=== PATIENT | male | born 1990 | race Caucasian/White ===

== ENCOUNTER 2020-05-12 12:13 | Emergency (ER) | payer OTHER, SELFPAY ==
[2020-05-12 12:25] VITALS: BP 126/62; PULSE 85; RESP 18; TEMP 35.7; O2SAT 100; BMI 23.6
--- NOTE | 2020-05-12 12:25 | DI.RAD.S_ITS ---
PROCEDURE: XR HAND RT MIN 3V INDICATIONS: chain saw accident TECHNIQUE: 3 views of the hand(s) acquired. COMPARISON: None. FINDINGS: Bones: No fractures or dislocations. Carpal bones are normally aligned. No suspicious bony lesions. Soft tissues: No suspicious soft tissue calcifications. No radiopaque foreign body. IMPRESSION: No acute osseous abnormalities. No radiopaque foreign body. Dictated by: Carlos Dye M.D. on 05/12/2020 at 13:37 Approved by: Carlos Dye M.D. on 05/12/2020 at 13:39
--- NOTE | 2020-05-12 13:04 | ED_ITS ---
HPI - Wound/Laceration <CARLOS ALBERTO Brock - Last Filed: 05/12/20 16:00> General Chief Complaint: Wound/Laceration Stated Complaint: wound from chain saw right hand thumb Time Seen by Provider: 05/12/20 12:36 Source: patient Mode of arrival: Family Vehicle Limitations: no limitations History of Present Illness HPI narrative: This is a 30-year-old male, current nicotine vapor, without p ertinent medical history presents to ED with right dominant hand thumb injury from a chainsaw when he was at work cutting down a tree. Patient reports injury happened 1 hour prior coming into ED. he reports tetanus vaccination is updated couple of months ago since he is also working at [employer]. Patient reports numbness on volar aspect of thumb but is able to move his fingers with flexion, extension and laterally with abduction and adduction. Patient denies previous injury to affected hand. Related Data Previous Rx's Medication Instructions Recorded cephalexin 500 mg PO Q6H 7 Days #28 cap 05/12/20 Allergies Allergy/AdvReac Type Severity Reaction Status Date / Time No Known Drug Allergies Allergy Verified 05/12/20 12:32 Review of Systems <CARLOS ALBERTO Brock - Last Filed: 05/12/20 16:00> Review of Systems Narrative: General: Denies fever, chills, fatigue, malaise, sweats. Respiratory: Denies dyspnea, cough, wheezing, hemoptysis, sputum. Cardiovascular: Denies chest pain, palpitations, orthopnea, edema. Gastrointestinal: Denies nausea, vomiting, abdominal pain, diarrhea, constipation, melena. Musculoskeletal: See HPI Skin: See HPI Patient History <CARLOS ALBERTO Brock - Last Filed: 05/12/20 16:00> Medical History No significant past medical history Surgical History No pertinent past surgical history Social History Smoking Status: Current every day smoker Smoking Status: Current every day smoker tobacco type: vaping alcohol intake frequency: 0-2 drinks per day Substance Use Type: does not use Exam <CARLOS ALBERTO Brock - Last Filed: 05/12/20 16:00> Narrative Exam Narrative: General appearance: well developed, well nourished, in no acute distress. Head: normocephalic, atraumatic, no scalp lesions, non-tender. ENT: Hearing grossly intact. Airway patent. Neck/Thyroid: neck supple, full range of motion, no visible masses or meningeal signs. No JVD, non-tender without lymphadenopathy. Skin: 5 linear lacerations mostly on volar and radial aspect of right thumb involving proximal and distal phalanges without active bleeding. Heart: no clubbing, no cyanosis, no edema. S1 and S2 normal. RRR w/o murmurs, clicks, or bruits. Lungs: Breathing even and unlabored. No stridor. No accessory muscles used. Able to speak in full sentences. Chest: normal shape and expansion. Abdomen: non-obese, non-distended. Neurologic: alert and oriented. Cognitive exam, [employer]BER and PNS grossly intact on informal exam. Psych: good eye contact, normal affect. Initial Vital Signs Initial Vital Signs: Vital Signs Temperature 96.3 F L 05/12/20 12:25 Pulse Rate 85 05/12/20 12:25 Respiratory Rate 18 05/12/20 12:25 Blood Pressure 126/62 05/12/20 12:25 Pulse Oximetry 100 05/12/20 12:25 Extrem Right upper extremity: hand Details: abnormal to inspection, normal capillary refill, tendon exam normal, tenderness, vascular exam, normal ROM of fingers and laceration (Five linear irregular jagged lacerations in proximal and distal phalanges of thumb. Decreased sensation to volar aspect of thumb) <Artie Castillo DO - Last Filed: 05/12/20 17:55> Initial Vital Signs Initial Vital Signs: Vital Signs Temperature 96.3 F L 05/12/20 12:25 Pulse Rate 85 05/12/20 12:25 Respiratory Rate 18 05/12/20 12:25 Blood Pressure 126/62 05/12/20 12:25 Pulse Oximetry 100 05/12/20 12:25 Procedures <Dale ParekhCARLOS ALBERTO - Last Filed: 05/12/20 16:00> Laceration Repair Laceration 1: Site: hand (thumb) Side (If applicable): right Size (cm): 5 (additional 3, 2, 1 cm) Description: linear and irregular Depth: simple, single layer Local Anesthetic: lidocaine 2%, with epi and with bicarb Amount of anesthesia used (mL): 6 Pre-repair: wound explored, irrigated extensively, deep structures intact and wound margins revised Skin layer closed with: nylon Size (cm): 4-0 Number of sutures: 14 Technique: simple, interrupted Scores <CARLOS ALBERTO Brock - Last Filed: 05/12/20 16:00> GCS Wolf coma scale eye opening: Spontaneous Wolf coma scale verbal response: Orientated Wolf coma scale motor response: Obey commands [place] coma scale total score: 15 Course <CARLOS ALBERTO Brock - Last Filed: 05/12/20 16:00> Orders Ordered: ED Orders 05/12/20 12:25 XR hand RT min 3V Stat Discontinued Medications Acetaminophen (Acetaminophen 325 Mg Tablet) 650 mg PO NOW ONE Stop: 05/12/20 13:03 Last Admin: 05/12/20 13:30 Dose: 650 mg Documented by: SEAN Hydrocodone Bitart/Acetaminophen (Hydrocodone/Acet 5/325 Tablet) 1 tab PO NOW ONE Stop: 05/12/20 13:03 Last Admin: 05/12/20 13:31 Dose: 1 tab Documented by: SEAN Bacitracin (Bacitracin Oint 0.9 Gm Pckt) 2 applic TOP NOW ONE Stop: 05/12/20 13:03 Last Admin: 05/12/20 13:30 Dose: 2 applic Documented by: SEAN Ibuprofen (Ibuprofen 400 Mg Tablet) 400 mg PO NOW ONE Stop: 05/12/20 13:03 Last Admin: 05/12/20 13:30 Dose: 400 mg Documented by: SEAN Lidocaine/Sodium Bicarbonate (Lido 1%/Sod Bicarb 8.4% (10ml) 10 Ml Syringe) 10 ml INJ NOW ONE Stop: 05/12/20 13:03 Last Admin: 05/12/20 13:31 Dose: 10 ml Documented by: SEAN Vital Signs Vital signs: Vital Signs - 8 hr 05/12/20 12:25 05/12/20 15:46 Temperature 96.3 F L Pulse Rate 85 78 Respiratory Rate 18 18 Blood Pressure 126/62 111/86 Pulse Oximetry 100 98 <Artie Castillo DO - Last Filed: 05/12/20 17:55> Orders Ordered: ED Orders 05/12/20 12:25 XR hand RT min 3V Stat Discontinued Medications Acetaminophen (Acetaminophen 325 Mg Tablet) 650 mg PO NOW ONE Stop: 05/12/20 13:03 Last Admin: 05/12/20 13:30 Dose: 650 mg Documented by: SEAN Hydrocodone Bitart/Acetaminophen (Hydrocodone/Acet 5/325 Tablet) 1 tab PO NOW ONE Stop: 05/12/20 13:03 Last Admin: 05/12/20 13:31 Dose: 1 tab Documented by: SEAN Bacitracin (Bacitracin Oint 0.9 Gm Pckt) 2 applic TOP NOW ONE Stop: 05/12/20 13:03 Last Admin: 05/12/20 13:30 Dose: 2 applic Documented by: SEAN Ibuprofen (Ibuprofen 400 Mg Tablet) 400 mg PO NOW ONE Stop: 05/12/20 13:03 Last Admin: 05/12/20 13:30 Dose: 400 mg Documented by: SEAN Lidocaine/Sodium Bicarbonate (Lido 1%/Sod Bicarb 8.4% (10ml) 10 Ml Syringe) 10 ml INJ NOW ONE Stop: 05/12/20 13:03 Last Admin: 05/12/20 13:31 Dose: 10 ml Documented by: SEAN Vital Signs Vital signs: Vital Signs - 8 hr 05/12/20 12:25 05/12/20 15:46 Temperature 96.3 F L Pulse Rate 85 78 Respiratory Rate 18 18 Blood Pressure 126/62 111/86 Pulse Oximetry 100 98 MDM - Wound/Laceration <CARLOS ALBERTO Brock - Last Filed: 05/12/20 16:00> Differential Diagnosis Differential diagnosis: Likely laceration and other (Open fracture on right thumb) Medical Records Attestation: I reviewed the patient's medical records. Imaging Data XR-Hand RT: Radiologist's Impression: [address] [id number] ReportSigned Patient: Fran Le LMR#: [id number]: 1990Acct:[id number]/Sex: 30 / MDate of Service: 05/12/20Loc: EDAccession Number: [id number] Procedure: XR hand RT min 3V Ordering Provider: Artie Castillo D.O. PROCEDURE: XR HAND RT MIN 3V INDICATIONS: chain saw accident TECHNIQUE: 3 views of the hand(s) acquired. COMPARISON: None. FINDINGS: Bones: No fractures or dislocations. Carpal bones are normally aligned. No suspicious bony lesions. Soft tissues: No suspicious soft tissue calcifications. No radiopaque foreign body. IMPRESSION: No acute osseous abnormalities. No radiopaque foreign body. Dictated by: Carlos Dye M.D. on 05/12/2020 at 13:37 Approved by: Carlos Dye M.D. on 05/12/2020 at 13:39 [facility] Narrative Medical decision making narrative: This is a 30-year-old male who had injured right thumb during at work while cutting trees with a chainsaw. Right dominant hand. Laceration in volar aspect of distal and proximal phalanges. Tetanus updated couple of months ago. Patient is able to flex and extend against resistance on affected finger but has decreased sensation on thumb pad. X-ray shows no acute findings such as fractures. Laceration irregular and 5 linear shapes deep and superficial laceration and had lost subcutaneous tissues and epidermis. Complicated suture repair after deep cleaning with Hibiclens and normal saline. Please see procedure note. Given patient's laceration involving finger/hand near joints and possible contamination with dirt, started patient on antibiotic medication with Keflex q.i.d. dose for 7 days. Patient advised to follow-up in 2 days for wound recheck and suture removal in 10-14 days. Phone number to [facility] provided and [facility] orthopedist if patient experiences weakness and decreased mobility with persistent numbness as needed. Patient verbalized understanding in agreement with the treatment plan. Finger splint provided for suture protection on affected finger. Dr. Castillo consulted for suture repair and he assessed the patient with myself at bedside. Discharge Plan Departure Patient Disposition: Home Clinical Impression: Laceration Instructions: DI for Laceration Repair Activity Restrictions/Additional Instructions: You have been diagnosed with [ and findings ]. What to do: *Take your medications as directed. You can start taking Keflex which is antibiotic medication 4 times for 7 days to prevent infection. The medication prescription has been transmitted to [facility] in [facility]. You can take [id number] Tylenol and or Motrin as needed for discomfort. Tylenol 650- 1000 mg up to 3 times a day as needed for pain. Ibuprofen 400-600 mg up to 3 times a day as needed for pain with food to decrease GI irritations. Use finger splint to protect sutures. Please do not get your wound soaked in the water until suture removal. Keep your dressing intact for next 24 hrs. After then, you could remove your dressing, wash with soap and water. Pat dry with clean paper towel and dress it with antibiotic ointment. You can change dressing as needed and daily. Please monitor for signs and symptoms for infection such as increasing redness, swelling, warmth, pain, fever, purulent discharge. If this occurs, please return to ED or follow up with your primary care physician since your wound may be gotten infected. Please follow up with your primary care provider in 2-3 days for recheck wound. Your suture should be removed [10-14 ] days. This can be done by your primary provider, walk-in clinic or here in ED. Please keep your wound clean, dry and intact all times. *Follow up with your primary care provider in 2-3 days, call for an appointment. Let them know you were seen in the ED and that we asked you to be seen in follow up. You can follow-up with [facility] if affected finger becomes weak, unable to flex/extend, prolonged numbness or any acute concerns. *Return to ED if you have any new, worsening, or concerning symptoms, such as [fever, chest pain, breathing difficulty, signs and symptoms above indicating infection, unable to tolerate medications or any acute concerns]. Prescriptions: New cephalexin 500 mg capsule 500 mg PO Q6H 7 Days Qty: 28 RF: 0 Referrals: [facility] [Provider Group] [facility] [Outside] Stand Alone Forms: Work Release Note <Artie Castillo, DO - Last Filed: 05/12/20 17:55> Cosign ED Attending Anthonyature Attestation: Dr Castillo Co-Sign Statement: I was available for consultation during this patient's emergency department visit. This chart is signed by myself for administrative purposes only. I did not have direct contact with this patient during this visit. They were seen independently by the APC.
[2020-05-12] MEDS: ACETAMINOPHEN 325 MG TABLET 650 MG PO (13:30)
[2020-05-12] MEDS: BACITRACIN OINT 0.9 GM PCKT 2 APPLIC TOP (13:30)
[2020-05-12] MEDS: IBUPROFEN 400 MG TABLET PO (13:30)
[2020-05-12] MEDS: LIDO 1%/SOD BICARB 8.4% (10ML) 10 ML SYRINGE INJ (13:31)
[2020-05-12] MEDS: HYDROCODONE/ACET 5/325 TABLET 1 TAB PO (13:31)
[2020-05-12] MEDS: LIDOCAINE 2% W/EPI INJ 20 ML (15:19)
[2020-05-12 15:46] VITALS: BP 111/86; PULSE 78; RESP 18; O2SAT 98
== END 2020-05-12 15:48 | disposition home or self-care (01) ==
PROVIDERS: Emergency Provider Nurse Practitioner Family
DX: S61.011A Laceration without foreign body of right thumb without damage to nail, initial encounter (principal); W29.3XXA Contact with powered garden and outdoor hand tools and machinery, initial encounter; Y99.0 Civilian activity done for income or pay
CPT/HCPCS: 12002; 29130; 73130; 99283; 99284

== ENCOUNTER 2024-06-15 19:13 | Emergency (ER) | payer SELFPAY ==
[2024-06-15 19:29] VITALS: BP 145/80; PULSE 114; RESP 20; TEMP 37.7; O2SAT 98; BMI 21.9
--- NOTE | 2024-06-15 19:53 | ED_ITS ---
HPI - Wound/Laceration General Chief Complaint: Wound/Laceration Stated Complaint: thumb laceration Time Seen by Provider: 06/15/24 19:47 Source: patient Mode of arrival: Ambulatory History of Present Illness HPI narrative: 34-year-old male no known past medical history presenting for laceration to his thumb of his left hand. He states that he is right-handed. He states that he cut it on a can of beans proximally 1 hour prior to arrival, unsure of tetanus vaccination. He denies any other issues symptoms this time. Related Data Previous Rx's Medication Instructions Recorded cyclobenzaprine 5 mg tablet 5 mg PO TID PRN muscle spasm #30 04/10/22 tabs Allergies Allergy/AdvReac Type Severity Reaction Status Date / Time No Known Drug Allergies Allergy Verified 04/10/22 15:50 Review of Systems Review of Systems Narrative: General: Denies fever, chills, weight loss HEENT: Denies headache, eye drainage, eye irritation, head trauma, sore throat, voice change Cardiovascular: Denies any chest pain, palpitations, tachycardia Respiratory: Denies any shortness of breath, cough, wheeze, stridor GI/: Denies any abdominal pain, nausea, vomiting, diarrhea, bright red blood per rectum, melanotic stools, urinary frequency, urinary retention, dysuria, hematuria MSK: Denies any joint pain, muscle pains, swelling Skin: Cut to left thumb Neuro: Denies any headache, lightheadedness, dizziness, fainting, weakness Psych: Denies SI/HI Patient History Medical History No significant past medical history Surgical History No pertinent past surgical history Smoking Status: Current every day smoker tobacco type: cigarettes and vaping alcohol intake frequency: 0-2 drinks per day Exam Narrative Exam Narrative: General: Cooperative, well-developed, not in acute distress HEENT: Normocephalic, atraumatic, PERRLA, normal sclera, eyelids normal Neck: Active full range of motion, atraumatic Chest: Normal to inspection, negative crepitus, no overlying erythema ecchymosis Respiratory: Normal respiratory effort, not in acute respiratory distress, clear to auscultation bilaterally negative cough, wheeze, tachypnea, rhonchi, rales Cardiology: Regular rate rhythm negative gallop, murmur, rubs GI/: No tenderness to palpation, soft, non rigid, normal to inspection, exam deferred MSK: Full active range of motion in all 4 extremities, atraumatic, no tenderness to palpation of any bony prominences Skin: No rashes or lesions noted Neuro: Alert awake oriented x3, moves all 4 extremities spontaneously, cranial nerves intact, able to answer all questions appropriately follows commands appropriately Psych: Cooperative, negative suicidal or homicidal ideations Initial Vital Signs Initial Vital Signs: Vital Signs Temperature 99.9 F H 06/15/24 19:29 Pulse Rate 114 H 06/15/24 19:29 Respiratory Rate 20 06/15/24 19:29 Blood Pressure 145/80 H 06/15/24 19:29 Pulse Oximetry 98 06/15/24 19:29 Oxygen Delivery Method Room Air 06/15/24 19:29 Course Vital Signs Vital signs: Vital Signs - 8 hr 06/15/24 19:29 Temperature 99.9 F H Pulse Rate 114 H Respiratory Rate 20 Blood Pressure 145/80 H Pulse Oximetry 98 Oxygen Delivery Method Room Air MDM - Wound/Laceration MDM Narrative Medical decision making narrative: 34-year-old male without any known past medical history presenting for lace ration to the palmar aspect of his left thumb, he states he cut it when he was opening a can of beans. Unsure of tetanus vaccination but states he does not want this updated here. I attempted to perform primary closure with sutures however patient states that he needs to ?check on his dog and have a smoke he states that he will be back later. I informed him that if he can wait then I would be able to close his laceration however he states that he needs to leave immediately, patient then eloped from the emergency department. Discharge Plan Departure Patient Disposition: Elopement Clinical Impression: Eloped from emergency department Prescriptions: No Action cyclobenzaprine 5 mg tablet 5 mg PO TID PRN (Reason: muscle spasm) Qty: 30 2RF Referrals: Isa Chiang DO [Primary Care Provider] -
--- NOTE | 2024-06-15 19:56 | PC.NURSE ---
Pt uwilling to wash thumb with tap water. Bottled water brought to room. MD in room attempting to get pt to agree to numbing thumb and perform suture. Pt states that he needs to go take care of his dog.
--- NOTE | 2024-06-15 20:00 | PC.NURSE ---
Pt states that he needs to go take care of his dog. Explained to pt that he needs to come into the ER through the front door. Pt left ER through ambulance bay. Pt left belongings in room. Belongings put in bag and placed in Lost and found location.
--- NOTE | 2024-06-15 23:10 | ED.WOUNDLAC ---
HPI - Wound/Laceration General Chief Complaint: Wound/Laceration Stated Complaint: thumb laceration Time Seen by Provider: 06/15/24 19:47 Source: patient Mode of arrival: Ambulatory History of Present Illness HPI narrative: 34-year-old male no significant past medical history presenting for laceration left thumb, he was seen here earlier but he eloped due to the fact that he needed to go check on his dog and ?have a smoke he is unsure of his tetanus vaccination but states he does not want this updated today. Related Data Previous Rx's Medication Instructions Recorded cyclobenzaprine 5 mg tablet 5 mg PO TID PRN muscle spasm #30 04/10/22 tabs Allergies Allergy/AdvReac Type Severity Reaction Status Date / Time No Known Drug Allergies Allergy Verified 04/10/22 15:50 Review of Systems Review of Systems Narrative: General: Denies fever, chills, weight loss HEENT: Denies headache, eye drainage, eye irritation, head trauma, sore throat, voice change Cardiovascular: Denies any chest pain, palpitations, tachycardia Respiratory: Denies any shortness of breath, cough, wheeze, stridor GI/: Denies any abdominal pain, nausea, vomiting, diarrhea, bright red blood per rectum, melanotic stools, urinary frequency, urinary retention, dysuria, hematuria MSK: Denies any joint pain, muscle pains, swelling Skin: Laceration of the left thumb Neuro: Denies any headache, lightheadedness, dizziness, fainting, weakness Psych: Denies SI/HI Patient History Medical History No significant past medical history Surgical History No pertinent past surgical history Smoking Status: Current every day smoker tobacco type: cigarettes and vaping alcohol intake frequency: 0-2 drinks per day Exam Narrative Exam Narrative: General: Cooperative, well-developed, not in acute distress HEENT: Normocephalic, atraumatic, PERRLA, normal sclera, eyelids normal Neck: Active full range of motion, atraumatic Chest: Normal to inspection, negative crepitus, no overlying erythema ecchymosis Respiratory: Normal respiratory effort, not in acute respiratory distress, clear to auscultation bilaterally negative cough, wheeze, tachypnea, rhonchi, rales Cardiology: Regular rate rhythm negative gallop, murmur, rubs GI/: No tenderness to palpation, soft, non rigid, normal to inspection, exam deferred MSK: Full active range of motion in all 4 extremities, atraumatic, no tenderness to palpation of any bony prominences Skin: Left thumb with laceration to the palmar aspect, proximally 1.5 cm in length, no foreign body, neurovascularly intact Neuro: Alert awake oriented x3, moves all 4 extremities spontaneously, cranial nerves intact, able to answer all questions appropriately follows commands appropriately Psych: Cooperative, negative suicidal or homicidal ideations Initial Vital Signs Initial Vital Signs: Vital Signs Temperature 99.9 F H 06/15/24 19:29 Pulse Rate 114 H 06/15/24 19:29 Respiratory Rate 20 06/15/24 19:29 Blood Pressure 145/80 H 06/15/24 19:29 Pulse Oximetry 98 06/15/24 19:29 Oxygen Delivery Method Room Air 06/15/24 19:29 Course Vital Signs Vital signs: Vital Signs - 8 hr 06/15/24 19:29 Temperature 99.9 F H Pulse Rate 114 H Respiratory Rate 20 Blood Pressure 145/80 H Pulse Oximetry 98 Oxygen Delivery Method Room Air MDM - Wound/Laceration Differential Diagnosis Differential diagnosis: Likely laceration and avulsion of skin MDM Narrative Medical decision making narrative: 34-year-old male no significant past medical history presenting from home for evaluation of laceration to the left thumb, he previously eloped here stating that he needed to ?check on his dog and have a smoke he presents to have laceration repair. He does not want his tetanus updated here. Discharge Plan Departure Patient Disposition: Elopement Clinical Impression: Eloped from emergency department Prescriptions: No Action cyclobenzaprine 5 mg tablet 5 mg PO TID PRN (Reason: muscle spasm) Qty: 30 2RF Referrals: Isa Chiang DO [Primary Care Provider] -
== END 2024-06-15 20:00 | disposition left against medical advice (07) ==
PROVIDERS: Emergency Provider Student in an Organized Health Care Education/Training Program; PCP Family Medicine
CPT/HCPCS: 99282

== ENCOUNTER 2024-06-15 21:13 | Emergency (ER) | payer SELFPAY ==
[2024-06-15 21:15] VITALS: BP 130/73; PULSE 116; RESP 20; TEMP 37.2; O2SAT 97; BMI 21.9
--- NOTE | 2024-06-15 23:17 | ED_ITS ---
HPI - Wound/Laceration General Chief Complaint: Wound/Laceration Stated Complaint: thumb laceration Time Seen by Provider: 06/15/24 23:16 Source: patient Mode of arrival: Ambulatory History of Present Illness HPI narrative: 34-year-old male no significant past medical history presenting for left thumb laceration, he states he cut it a few hours ago on a can of beans, he is not wanting his tetanus updated. Denies any other injury Related Data Previous Rx's Medication Instructions Recorded cyclobenzaprine 5 mg tablet 5 mg PO TID PRN muscle spasm #30 04/10/22 tabs Allergies Allergy/AdvReac Type Severity Reaction Status Date / Time No Known Drug Allergies Allergy Verified 04/10/22 15:50 Review of Systems Review of Systems Narrative: General: Denies fever, chills, weight loss HEENT: Denies headache, eye drainage, eye irritation, head trauma, sore throat, voice change Cardiovascular: Denies any chest pain, palpitations, tachycardia Respiratory: Denies any shortness of breath, cough, wheeze, stridor GI/: Denies any abdominal pain, nausea, vomiting, diarrhea, bright red blood per rectum, melanotic stools, urinary frequency, urinary retention, dysuria, hematuria MSK: Denies any joint pain, muscle pains, swelling Skin: Laceration to left thumb Neuro: Denies any headache, lightheadedness, dizziness, fainting, weakness Psych: Denies SI/HI Patient History Medical History No significant past medical history Surgical History No pertinent past surgical history tobacco type: cigarettes and vaping alcohol intake frequency: 0-2 drinks per day Exam Narrative Exam Narrative: General: Cooperative, well-developed, not in acute distress HEENT: Normocephalic, atraumatic, PERRLA, normal sclera, eyelids normal Neck: Active full range of motion, atraumatic Chest: Normal to inspection, negative crepitus, no overlying erythema ecchymosis Respiratory: Normal respiratory effort, not in acute respiratory distress, clear to auscultation bilaterally negative cough, wheeze, tachypnea, rhonchi, rales Cardiology: Regular rate rhythm negative gallop, murmur, rubs GI/: No tenderness to palpation, soft, non rigid, normal to inspection, exam deferred MSK: Full active range of motion in all 4 extremities, atraumatic, no tenderness to palpation of any bony prominences Skin: Laceration to the left thumb, proximally 1.5 cm palmar aspect neurovascularly intact Neuro: Alert awake oriented x3, moves all 4 extremities spontaneously, cranial nerves intact, able to answer all questions appropriately follows commands appropriately Psych: Cooperative, negative suicidal or homicidal ideations Initial Vital Signs Initial Vital Signs: Vital Signs Temperature 98.9 F 06/15/24 21:15 Pulse Rate 116 H 06/15/24 21:15 Respiratory Rate 20 06/15/24 21:15 Blood Pressure 130/73 06/15/24 21:15 Pulse Oximetry 97 06/15/24 21:15 Oxygen Delivery Method Room Air 06/15/24 21:15 Course Vital Signs Vital signs: Vital Signs - 8 hr 06/15/24 21:15 Temperature 98.9 F Pulse Rate 116 H Respiratory Rate 20 Blood Pressure 130/73 Pulse Oximetry 97 Oxygen Delivery Method Room Air MDM - Wound/Laceration Differential Diagnosis Differential diagnosis: Likely laceration and avulsion of skin MDM Narrative Medical decision making narrative: 34-year-old male presenting for laceration of the palmar aspect of his left thumb, he was seen here previously in the left/eloped because he states that he needs to see his dog and smoke. He was here previously for the same and he k eeps stating that he needs to leave despite multiple attempts to have him sit down and performed laceration repair. He keeps saying that he needs to use the restroom as well as needing to check on his dog and have a smoke. Informed him that he can not keep coming back and leaving, he states that he does not want to stay here and wait states that he needs to go see his dog, I informed him that I can just close his laceration with Dermabond but he does not want to do this. He states that he would rather just go to a different hospital. On exam he is neurovascularly intact, I informed him to follow up with his primary care doctor. Discharge Plan Departure Patient Disposition: Home Clinical Impression: Laceration Instructions: DI for Minor Laceration Activity Restrictions/Additional Instructions: Please follow up with the primary care doctor Please read the discharge instructions sheet carefully and bring all papers to all doctor follow-up visits, as it may contain information that your doctor may want to see. Disease processes change and evolve, if your symptoms worsen or if you develop any new symptoms that are concerning to you please return for evaluation. Your evaluation today does not show any evidence of any life- threatening/serious illnesses requiring admission to the hospital or surgery. Please follow-up with your doctor for re-evaluation in approximately 1 day. Seek immediate medical attention for any worrisome symptoms. *If you do not have a primary care provider please contact the [facility] Resource line at [phone]. They will ask some questions about your medical history and help get you set up with a doctor in the community. Prescriptions: No Action cyclobenzaprine 5 mg tablet 5 mg PO TID PRN (Reason: muscle spasm) Qty: 30 2RF Referrals: Isa Chiang DO [Primary Care Provider] - Stand Alone Forms: Patient Portal/API/Survey
--- NOTE | 2024-06-15 23:43 | PC.NURSE ---
Pt appears highly intoxicated, difficult to redirect. Continuously wanting to go back outside to either smoke, or care for his dog in the car. Advised pt multiple times that this will be quick if he just sits down. Provider offered multiple times to either suture closed, or glue. However, pt is not able to follow directions enough to participate. Cleaned wound and re-dressed with gauze/coban. Advised pt if he still would like care then the best thing would be to sober up and return. So that he is not worried about caring for his dog and he can focus on his own care. This nurse walked pt to his car with security, dog in car, no distress noted.
== END 2024-06-15 23:48 | disposition home or self-care (01) ==
PROVIDERS: Emergency Provider Student in an Organized Health Care Education/Training Program; PCP Family Medicine
DX: S61.012A Laceration without foreign body of left thumb without damage to nail, initial encounter (principal); W26.8XXA Contact with other sharp object(s), not elsewhere classified, initial encounter
CPT/HCPCS: 99281

== ENCOUNTER 2024-06-16 01:06 | Emergency (ER) | payer SELFPAY ==
--- NOTE | 2024-06-16 01:11 | ED.WOUNDLAC ---
HPI - Wound/Laceration General Stated Complaint: cut thumb Time Seen by Provider: 06/16/24 01:11 History of Present Illness HPI narrative: 34-year-old male presenting for the 3rd time asking to have his cut to his left thumb sutured, he states that he is now willing to sit down and get the cut fixed. No new injuries or symptoms at this time Related Data Previous Rx's Medication Instructions Recorded cyclobenzaprine 5 mg tablet 5 mg PO TID PRN muscle spasm #30 04/10/22 tabs Allergies Allergy/AdvReac Type Severity Reaction Status Date / Time No Known Drug Allergies Allergy Verified 04/10/22 15:50 Review of Systems Review of Systems Narrative: General: Denies fever, chills, weight loss HEENT: Denies headache, eye drainage, eye irritation, head trauma, sore throat, voice change Cardiovascular: Denies any chest pain, palpitations, tachycardia Respiratory: Denies any shortness of breath, cough, wheeze, stridor GI/: Denies any abdominal pain, nausea, vomiting, diarrhea, bright red blood per rectum, melanotic stools, urinary frequency, urinary retention, dysuria, hematuria MSK: Denies any joint pain, muscle pains, swelling Skin: Cut to the left finger Neuro: Denies any headache, lightheadedness, dizziness, fainting, weakness Psych: Denies SI/HI Patient History Medical History No significant past medical history Surgical History No pertinent past surgical history tobacco type: cigarettes and vaping alcohol intake frequency: 0-2 drinks per day Exam Narrative Exam Narrative: General: Cooperative, well-developed, not in acute distress HEENT: Normocephalic, atraumatic, PERRLA, normal sclera, eyelids normal Neck: Active full range of motion, atraumatic Chest: Normal to inspection, negative crepitus, no overlying erythema ecchymosis Respiratory: Normal respiratory effort, not in acute respiratory distress, clear to auscultation bilaterally negative cough, wheeze, tachypnea, rhonchi, rales Cardiology: Regular rate rhythm negative gallop, murmur, rubs GI/: No tenderness to palpation, soft, non rigid, normal to inspection, exam deferred MSK: Full active range of motion in all 4 extremities, atraumatic, no tenderness to palpation of any bony prominences Skin: Laceration to the palmar aspect of the left thumb 1.5 cm laceration Neuro: Alert awake oriented x3, moves all 4 extremities spontaneously, cranial nerves intact, able to answer all questions appropriately follows commands appropriately Psych: Cooperative, negative suicidal or homicidal ideations MDM - Wound/Laceration Differential Diagnosis Differential diagnosis: Likely laceration MDM Narrative Medical decision making narrative: 34-year-old male presenting for the 4th time attempting to get the cut on his finger closed. Upon attempting to close the laceration patient again stating that he needs to go out and ?take care something I informed him that he can not keep doing this, I informed him that this is now in abuse of the system, he does not need the laceration repaired emergently or urgently, he is neurovascularly intact. Patient is A&O x4, he has a medical capacity at this time. Patient is refusing to sit calmly and allow me to take care of him. He was again instructed to follow up with his primary care doctor to have his wound re-evaluated. Patient be discharged Discharge Plan Departure Patient Disposition: Home Clinical Impression: Laceration Activity Restrictions/Additional Instructions: Please follow up with the primary care doctor Please read the discharge instructions sheet carefully and bring all papers to all doctor follow-up visits, as it may contain information that your doctor may want to see. Disease processes change and evolve, if your symptoms worsen or if you develop any new symptoms that are concerning to you please return for evaluation. Your evaluation today does not show any evidence of any life-threatening/serious illnesses requiring admission to the hospital or surgery. Please follow-up with your doctor for re-evaluation in approximately 1 day. Seek immediate medical attention for any worrisome symptoms. *If you do not have a primary care provider please contact the [facility] Resource line at [phone]. They will ask some questions about your medical history and help get you set up with a doctor in the community. Prescriptions: No Action cyclobenzaprine 5 mg tablet 5 mg PO TID PRN (Reason: muscle spasm) Qty: 30 2RF Referrals: Isa Chiang DO [Primary Care Provider] - Stand Alone Forms: Patient Portal/API/Survey
--- NOTE | 2024-06-16 01:16 | PC.NURSE ---
Attempted to assist pt with his wound laceration again for the third time this nurses shift. However, pt is not able to follow directions and sit still. Pt adamit about having sutures, but then stops staff progress to do so by saying that he needs his box to clean his wound with hydrogen peroxide. Advised pt again that his box broke and we placed his items in bags and he took them to the car. At this time pt will be discharged. Advised pt again to sober up and then return.
== END 2024-06-16 01:19 | disposition home or self-care (01) ==
PROVIDERS: Emergency Provider Student in an Organized Health Care Education/Training Program; PCP Family Medicine
DX: S61.012A Laceration without foreign body of left thumb without damage to nail, initial encounter (principal)
CPT/HCPCS: 99281